=== PATIENT | male | born 1970 | race Caucasian/White ===

== ENCOUNTER 2016-06-02 07:07 | Emergency (ER) | payer OTHER ==
[~2016-06-02] VITALS: Ht 190.5 cm; Wt 95.3 kg
--- NOTE | 2016-06-02 07:25 | ED GENERAL ADULT ---
History of Present Illness General Chief Complaint: Foot or Ankle Injury Stated Complaint: L ANKLE PAIN/SWELLING X 1 MONTH Source: patient Exam Limitations: no limitations Vital Signs & Intake/Output Vital Signs & Intake/Output Vital Signs Date Time Temp Pulse Resp B/P Pulse O2 O2 Flow FiO2 Ox Delivery Rate 06/02 0823 98.1 84 18 136/72 100 Room Air 06/02 716 98.3 93 20 146/83 97 Room Air Allergies Coded Allergies: amoxicillin (From AUGMENTIN) (GI DISTRESS 06/02/16) clavulanic acid (From AUGMENTIN) (GI DISTRESS 06/02/16) Reconcile Medications Hydroxyzine HCl 50 MG TABLET 1 TAB PO QPM UNKNOWN (Reported) Paroxetine HCl (Paxil) 10 MG TABLET 1 TAB PO QPM MENTAL HEALTH (Reported) Quetiapine Fumarate 100 MG TABLET 1 TAB PO QPM SLEEP (Reported) Triage Note: PT TO ED C/O LEFT ANKLE PAIN AND SWELLING X 1 MONTH, WORSENING THE PAST COUPLE OF DAYS. NO OBVIOUS INJURY. PAIN IS WORSE WITH WEIGHT BEARING. PT ARRIVED USING CRUTCHES. REFUSING MEDS IN TRIAGE. Triage Nurses Notes Reviewed? yes Onset: Abrupt Duration: day(s): Timing: recent history HPI: 06/02/16 7:30 AM 46-year-old man presents to the emergency department complaining of left ankle pain. The patient states that just after Thanksgiving he twisted his ankle and he iced it and took ibuprofen and it seemed to get better. Now without any new trauma he's having pain and swelling to the left ankle. This is been ongoing for about the last 24 hours. No fever. No new trauma. He has a past medical history of depression. No significant past surgical history. He is allergic to penicillin, he takes medications for depression. The onset of the symptoms were abrupt, the duration has been approximately 24 hours, the severity is significant as his symptoms required him to come to the emergency department for care on physical exam he does have some tenderness and swelling to the left ankle. This is mostly at the lateral malleolus Past History Travel History Traveled to [place] past 21 day No Medical History Any Pertinent Medical History? see below for history Psychiatric: depression Surgical History Surgical History: non-contributory Psychosocial History What is your primary language Yi Tobacco Use: Never used ETOH Use: denies use Illicit Drug Use: denies illicit drug use Family History Hx Contributory? No Review of Systems Review of Systems Constitutional: Denies: fever. EENTM: Reports: no symptoms. Respiratory: Reports: no symptoms. Cardiovascular: Reports: no symptoms. GI: Reports: no symptoms. Genitourinary: Reports: no symptoms. Musculoskeletal: Reports: see HPI. Skin: Denies: rash. Neurological/Psychological: Reports: no symptoms. Hematologic/Endocrine: Reports: no symptoms. Immunologic/Allergic: Reports: no symptoms. Physical Exam Physical Exam General Appearance: well developed/nourished, alert, awake, anxious Head: atraumatic, normal appearance Eyes: Bilateral: normal appearance, PERRL, EOMI. Ears, Nose, Throat: normal pharynx, normal ENT inspection Neck: normal inspection, supple, full range of motion Respiratory: normal breath sounds, chest non-tender, no respiratory distress Cardiovascular: regular rate/rhythm Peripheral Pulses: 4+ dorsalis pedis (L) Extremities: swelling, tenderness Neurologic/Psych: no motor/sensory deficits, awake, alert, oriented x 3 Skin: intact, normal color, warm/dry Comments: On physical exam he's had an excellent left dorsalis pedis pulse. There is some swelling to the left ankle. There is no redness or increased warmth. He does have tenderness just below the lateral malleolus. There is no ligament instability. No history of rash or tick bite; I believe he has a ongoing left ankle sprain. He was treated with an Zachariah wrap that was applied by the ED RN. He will weight-bear as tolerated. He'll take ibuprofen for pain. And will follow-up with his doctor this week Core Measures ACS in differential dx? No CVA/TIA Diagnosis: No Severe Sepsis Present: No Septic Shock Present: No Progress Differential Diagnoses I considered the following diagnoses in my evaluation of the patient: [Septic arthritis, ankle sprain, fracture, Lyme disease] Plan of Care: follow up with your doctor Initial ED EKG: none Departure Departure Disposition: HOME OR SELF CARE Condition: Stable Clinical Impression Primary Impression: Ankle sprain Referrals: UNKNOWN (PCP/Family) Referred to [facility] as new patient No Departure Forms: Customer Survey General Discharge Information Comments left ankle IMPRESSION: Normal alignment. No acute osseous abnormality. A small ankle joint effusion is seen with mild soft tissue swelling. The findings could be posttraumatic or related to arthritis or infectious process. DICTATED BY: KAY ABRAHAM MD DATE/TIME DICTATED:06/02/[address] CUTTER:RITA DATE/TIME TRANSCRIBED:06/02/16803 CONFIDENTIAL, DO NOT COPY WITHOUT APPROPRIATE AUTHORIZATION. <Electronically signed in Other Vendor System> SIGNED BY: KAY ABRAHAM MD 06/02/16808 Critical Care Note Critical Care Note Critical Care Time: non-applicable
[2016-06-02] MEDS ORDERED: PAXIL10 M1 PO (07:58)
[2016-06-02] MEDS ORDERED: HYDROXYZINE HCL50 M1 PO (07:58)
[2016-06-02] MEDS ORDERED: QUETIAPINE FUM100 M1 PO (07:58)
--- NOTE | 2016-06-02 08:09 | RADIOLOGY REPORT ---
EXAMINATION: XR ANKLE, LEFT CLINICAL INFORMATION: Left ankle pain. Lateral malleolus redness and swelling. COMPARISON: None. TECHNIQUE: 3 views of the left ankle. FINDINGS: Ankle mortise is symmetric. No fracture, dislocation or acute osseous abnormality is seen. There is a small ankle joint effusion with mild soft tissue swelling anteriorly. IMPRESSION: Normal alignment. No acute osseous abnormality. A small ankle joint effusion is seen with mild soft tissue swelling. The findings could be posttraumatic or related to arthritis or infectious process.
[2016-06-02 08:23] VITALS: BP 136/72
== END 2016-06-02 08:24 ==
LOC: ERH 07:07
DX: S93.402A Sprain of unspecified ligament of left ankle, initial encounter (principal); X58.XXXA Exposure to other specified factors, initial encounter
CPT/HCPCS: 73610-LT